=== PATIENT | female | born 1995 | race Caucasian/White ===

== ENCOUNTER 2018-01-07 15:05 | Inpatient (IN) | payer MEDICAID ==
[~2018-01-07] VITALS: Ht 157.5 cm; Wt 86.2 kg
[~2018-01-07 15:05] MED LIST: CEFU250T11 PO; NAP500 PO; ONDA4TAB PO; ONDA4TAB97 PO; PREN-127 PO; TRA50 PO; TRIO80T TOP
[2018-01-07] MEDS ORDERED: OXYTOCIN 30 UNIT/D5LR 500 ML 500 ML IV PRN (15:34)
[2018-01-07] MEDS ORDERED: FAMOTIDINE(*) 20MG/50ML PREMIX 50 ML IVPB PRN (15:34)
[2018-01-07] MEDS ORDERED: DLR(*) 1000 ML BAG 1,000 ML IV PRN (15:34)
[2018-01-07] MEDS ORDERED: fentaNYL CITR 100 MCG/2 ML AMP IVP PRN (15:35)
[2018-01-07] MEDS ORDERED: fentaNYL CITR 100 MCG/2 ML AMP IT PRN (15:35)
[2018-01-07] MEDS ORDERED: EPIDURAL KEYS XX PRN (15:35)
[2018-01-07] MEDS ORDERED: LIDOCAINE 1% LOCAL 300 MG/30ML INJ PRN (15:35)
[2018-01-07] MEDS ORDERED: LIDOCAINE/PF 2% 200MG/10ML AMP 200 MG/10 ML AMPUL EPI PRN (15:35)
[2018-01-07] MEDS ORDERED: METOCLOPRAMIDE 10 MG/2 ML SDV IVP PRN (15:35)
[2018-01-07] MEDS ORDERED: BUPIVACAINE 0.25% MPF INJ EPI PRN (15:35)
[2018-01-07] MEDS ORDERED: FLUSH 10 ML SYR IVP PRN (15:35)
[2018-01-07] MEDS ORDERED: LIDO/EPI 2% MPF 1:200,000 20ML EPI PRN (15:35)
[2018-01-07] MEDS ORDERED: cefOXitin/DEX(*) 2GM/50ML PREM 50 ML IVPB PRN (15:35)
[2018-01-07 16:17] LABS: PLATELET COUNT, AUTOMATED 183 K/uL (150-450)
--- NOTE | 2018-01-07 18:39 | History & Physical ---
History of Present Illness Age of Patient: 22 : 2 Para or TPAL: 0101 EDC per LMP: Jan 15, 2018 Estimated Gestational Age: 38.6 Chief Complaint Uterine contractions. Loss of fluid. History of Present Illness The patient is a 22 year old 2 para 0101 admitted at 38 6/7 weeks estimated gestational age with an estimated date of delivery 01/15/18 . Patient is admitted with complaint of contractions and loss of fluid. No vaginal bleeding. Good movement and occasional contractions. She was evaluated for active labor. She had an uncomplicated course. Her record was reviewed. History Allergies: Coded Allergies: No Known Drug Allergies (Verified , 10/09/12) Med Rec Home Meds Active Scripts Ondansetron Hcl (ZOFRAN) 4 Mg Tablet, 4 MG PO Q6H Y for NAUSEA/VOMITING, #10 Prov:VOLODYMYR ADLER DO 06/24/17 Cefuroxime Axetil (CEFUROXIME) 250 Mg Tablet, 250 MG PO BID for infection, #14 TAB Prov:VOLODYMYR ADLER DO 06/24/17 Reported Medications Vits W-Ca,Fe,Fa(<1MG) ( VITAMINS) 1 Each Tablet, 1 EACH PO DAILY, TAB 06/23/17 Exam General Exam Cardiovascular: Regular Rate and Rhythm Respiratory: Clear to Auscultation Abdomen: Gravid - Non-Tender Extremities: No Edema Cervical Dialation: 4 Cervical Effacement (%): 90 Uterine Contractions(Q min): 3 Uterine Contraction Strength: Moderate Fetus Heart Tones: 130 Heart Tone Variabilty: Moderate FHT Category: I Medical Decision Making Data Points Result Diagram: 01/07/18 8929 Assessment and Plan Problems: (1) Active labor at term Assessment & Plan: SROM, started on pitocin for augmentation anticipated vaginal delivery (2) Chronic anemia Assessment & Plan: typed and screened will follow to see if symptoms develop Copies to: IMANI COLÓN MD, JOHN MD Jan 07, 2018 18:39
[2018-01-07] MEDS: LR(*) 1000 ML BAG 1,000 ML IV PRN ×2 (19:17→20:23)
[2018-01-07] MEDS: FENTANYL/ROPIVACAINE 100 ML BAG EPI PRN ×2 (19:19→22:00)
--- NOTE | 2018-01-07 19:44 | Labor Progress Note ---
Labor Subjective Progress Notes Subjective comfortable with epidural Labor Pain: Comfortable Labor Objective Cervical Dialation: 5 Cervical Effacement (%): 90 Cervical Consistency: Soft Cervical Position: Anterior Station: 0 Uterine Contractions(Q min): 3 Uterine Contraction Strength: Moderate Fetus Heart Tones: 140 Heart Tone Variabilty: Moderate FHT Category: I Other Result Diagram: 01/07/18 1557 Assessment and Plan Problems: (1) Active labor at term Assessment & Plan: epidural in anticipate vaginal delivery (2) Chronic anemia IMANI COLÓN MD Jan 07, 2018 19:44
--- NOTE | 2018-01-07 20:01 | Anesthesia OB Pre-Anes Eval ---
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 Hx Anesthesia Reactions: No Hx Family Anesthesia Reaction: No Home Meds Active Scripts Ondansetron Hcl (ZOFRAN) 4 Mg Tablet, 4 MG PO Q6H Y for NAUSEA/VOMITING, #10 Prov:VOLODYMYR ADLER DO 06/24/17 Cefuroxime Axetil (CEFUROXIME) 250 Mg Tablet, 250 MG PO BID for infection, #14 TAB Prov:VOLODYMYR ADLER DO 06/24/17 Reported Medications Vits W-Ca,Fe,Fa(<1MG) ( VITAMINS) 1 Each Tablet, 1 EACH PO DAILY, TAB 06/23/17 Allergies: Coded Allergies: No Known Drug Allergies (Verified , 10/09/12) Anesthesia OB ROS Eyes ROS: other (no contacts) Airway Class: l GI ROS: clear liquids Last Solids Date: Jan 07, 2018 Last Solids Time: 09:00 ASA Classification: 2, E Assessment and Plan Anesthesia Plan: ALIREZA MILLER CRNA Jan 07, 2018 20:01
[2018-01-07 20:05] VITALS: BP 148/78; Ht 157.5 cm; Wt 86.2 kg
--- NOTE | 2018-01-07 20:06 | Procedure Note ---
Anesthetic Placement Note Anesthesia Plan: LEB Permit for Anesthesia Signed: Yes Anesthesia Technique: Patient Sitting Anesthesia Prep: Betadine Interspace: L 2-3 Local Anesthetic: 1% Lidocaine Amount Local - cc's: 3 Anesthesia Needle: 17g Adelita/Williams Loss of Resistance: Air Depth of PRAVEENA (cm): 4.5 Catheter Insertion (cm): 5 Catheter Type: Parra - Spring Wound Epidural Dressing: Tegaderm Anesthesia Tray: Lot Number ([id number]), Expiration Date (2018-08-05), Reference Number ([id number]) Comment: no problems placing epidural. Anesthesia Medications: Epidural Test Dose: 1.5 Lido/Epi (1:200,000), Dose - mL (5), Time (19:29), Negative Epidural Loading Dose: 0.2% Ropivicaine, With Fentanyl 2mcg/ml, Dose - ml (9), Time (19:34) Epidural Infusion: 0.2% Ropivicaine, With Fentanyl 2mcg/ml, Start Time: (19:45) Epidural Pump Setting: Bolus Dose - mL (5), Lockout - Minutes (10), Maintenance Rate - mL/hr (9), Maximum per Hour - mL (19) Complications: None ALIREZA VALLECILLO CRNA Jan 07, 2018 20:05
--- NOTE | 2018-01-07 20:07 | Anesthesia Progress Note ---
Progress/Maintenance Anesthesia Note Date: Jan 07, 2018 Anesthesia Note Time: 20:05 Pain Intensity: 3 Pump: On Pump Rate (ML/HR): 9 Sensory Level: t-8 Motor Level: Bending Knees-Bilateral Position: Right, Tilt ALIREZA VALLECILLO CRNA Jan 07, 2018 20:07
--- NOTE | 2018-01-07 22:54 | Anesthesia Progress Note ---
Progress/Maintenance Anesthesia Note Date: Jan 07, 2018 Anesthesia Note Time: 22:40 Pain Intensity: 3 Pump: On Pump Rate (ML/HR): 9 Motor Level: Bending Knees-Bilateral Dilatation: 10 Anesthesia Treatment: donalding ALIREZA VALLECILLO CRNA Jan 07, 2018 22:54
[2018-01-07] MEDS ORDERED: METHYLERGONOVINE MAL 0.2MG/ML ONE (23:10)
[2018-01-07] MEDS ORDERED: MISOPROSTOL 200 MCG TAB ONE (23:15)
[2018-01-07] MEDS ORDERED: INFLUENZA VIRUS VAC 0.5 ML SYR IM ONLY ONE (23:20)
[2018-01-07] MEDS ORDERED: HYDROCORTISONE 2.5% CR 30GM TB PR PRN (23:20)
[2018-01-07] MEDS ORDERED: MISOPROSTOL 200 MCG TAB PR ONE ×2 (23:20)
[2018-01-07] MEDS ORDERED: LANOLIN OINT 7 GM TUBE TP PRN (23:20)
[2018-01-07] MEDS ORDERED: ACETAMINOPHEN 325 MG TAB PO PRN (23:20)
[2018-01-07] MEDS ORDERED: GLYCERIN/WITCH HAZEL LEAF 1 PK TOP PRN (23:20)
[2018-01-07] MEDS ORDERED: BENZOCAINE 20% 60 ML BTL TP PRN (23:20)
[2018-01-07] MEDS ORDERED: MAGNESIUM HYDROXIDE* 30ML UDCP PO PRN (23:20)
[2018-01-07] MEDS ORDERED: DIPHTH/TETANUS/ACEL. PERTUSSIS IM ONE (23:20)
[2018-01-07] MEDS ORDERED: MEASLES,MUMP,RUBELLA VAC 0.5ML SC ONE (23:20)
--- NOTE | 2018-01-07 23:21 | OB Delivery Note ---
Delivery Note Vaginal Delivery Type: Spont. Vaginal Delivery Delivery Date: Jan 07, 2018 Delivery Time: 23:01 Delivery Anesthesia: Epidural Sex: Female Infant Weight (gms): 3395 Apgars: 1 Minute (8), 5 Minute (9) Repair Needed: Laceration, Superficial, Labial Estimated Blood Loss: 300 Delivery Complications: Nuchal Cord Notes: SPONTANEOUS LABOR, SROM, RECEIVED EPIDURAL AUGMENTED WITH PITOCIN, PROGRESSED TO COMPLETE, PUSHED EFFECTIVELY. NUCHAL COR NOTED DELIVERED THROUGH, REPAIR OF SUPERFICIAL LACERATION WITH 3-0 VICRYL. NO COMPLICATIONS, GIVEN CYTOTEC WITH HISTORY OF ANEMIA TO DECREASE BLOOD LOSS Improvement Spec in Attendence: No Copies to: IMANI COLÓN MD, JOHN MD Jan 07, 2018 23:21
[2018-01-07] MEDS ORDERED: IBUP800T37 PO (23:27)
[2018-01-07] MEDS ORDERED: HYDR2TAB4 PO (23:27)
--- NOTE | 2018-01-07 23:28 | OB/GYN Discharge Summary ---
Discharge Summary Reason for Hosp/Final Diag: (1) Active labor at term Status: Resolved (2) Chronic anemia (3) care following vaginal delivery Hospital Course & Plan: Spontaneous labor, vaginal delivery on day 2, Pain controlled, Tolerating diet and activity. Baby bottle feeding. Normal lochia. Lates Vital Signs Vital Signs Date Time Temp Pulse Resp B/P (MAP) Pulse Ox O2 Delivery O2 Flow Rate FiO2 01/07/18 20:05 97.1 80 18 148/78 (101) 100 Room Air Weight (Pounds): 190 Result Diagram: 01/07/18 1557 Condition: Improved Discharge: Home Home Meds Active Scripts Ferrous Sulfate (FERROUS SULFATE) 325 Mg Tablet.dr, 1 TAB PO TID, #90 TAB 0 Refills Prov:IMANI SOUTH MD 01/07/18 Docusate Calcium (DOCUSATE CALCIUM) 240 Mg Capsule, 1 CAP PO BID, #60 CAPSULE 0 Refills Prov:IMANI SOUTH MD 01/07/18 Ibuprofen (IBUPROFEN) 800 Mg Tablet, 1 TAB PO Q8H, #30 TAB 0 Refills Take with food every 8 hours. Prov:IMANI SOUTH MD 01/07/18 Hydromorphone Hcl (HYDROMORPHONE HCL) 2 Mg Tablet, 2-4 MG PO Q4H for PAIN, #20 TAB 0 Refills Prov:IMANI SOUTH MD 01/07/18 Ondansetron Hcl (ZOFRAN) 4 Mg Tablet, 4 MG PO Q6H Y for NAUSEA/VOMITING, #10 Prov:VOLODYMYR ADLER DO 06/24/17 Cefuroxime Axetil (CEFUROXIME) 250 Mg Tablet, 250 MG PO BID for infection, #14 TAB Prov:VOLODYMYR ADLER DO 06/24/17 Reported Medications Vits W-Ca,Fe,Fa(<1MG) ( VITAMINS) 1 Each Tablet, 1 EACH PO DAILY, TAB 06/23/17 Follow up with: Dr. South [phone] Follow up in: 6 wks PP or PO Discharge Diet: As Tolerates Discharge Activity: Pelvic Rest Copies to: IMANI SOUTH MD, JOHN MD Jan 07, 2018 23:28
--- NOTE | 2018-01-07 23:28 | Anesthesia Progress Note ---
Assessment and Plan Anesthesia Plan: LEB Assessment: delivered, pump stopped at 2320 hrs. Catheter to be removed later by OB staff. Anesthesia Stop Day: Jan 07, 2018 Anesthesia Stop Time: 23:25 Epidural Catheter Removal: Removed by: Condition no problems noted. ALIREZA VALLECILLO CRNA Jan 07, 2018 23:28
[2018-01-07] MEDS ORDERED: DOCU240C67 PO (23:29)
[2018-01-07] MEDS ORDERED: FERR-41 PO (23:29)
[2018-01-08] MEDS: IBUPROFEN 800 MG TAB PO SCH ×3 (01:05→16:34)
[2018-01-08 01:30] VITALS: BP 133/84
[2018-01-08 04:30] VITALS: BP 137/77
[2018-01-08] MEDS: HYDROmorphone HCL 2 MG TAB PO PRN ×4 (05:14→20:25)
[2018-01-08] MEDS ORDERED: MISOPROSTOL 200 MCG TAB ONE (06:31)
[2018-01-08 07:20] VITALS: BP 129/75
--- NOTE | 2018-01-08 08:13 | OB/GYN Progress Note ---
OB Subjective Progress Notes Subjective Pain controlled, Tolerating diet and activity. Baby bottle feeding. Normal lochia. GI: POS Flatus, NEG Nausea, NEG Vomiting : Voiding Well OB Objective Physical Exam Vital Signs Date Time Temp Pulse Resp B/P (MAP) Pulse Ox O2 Delivery O2 Flow Rate FiO2 01/08/18 07:20 98.2 79 30 129/75 (93) 97 Room Air Cardiovascular: Regular Rate and Rhythm Respiratory: Clear to Auscultation Abdomen: Fundus Firm Extremities: No Edema Result Diagram: 01/08/18 0544 Assessment and Plan Problems: (1) Active labor at term Status: Resolved (2) Chronic anemia (3) care following vaginal delivery Assessment & Plan: Pain controlled, Tolerating diet and activity. Baby bottle feeding. Normal lochia. IMANI COLÓN MD Jan 08, 2018 08:12
[2018-01-08] MEDS: MULTIVITAMINS (PRENATAL) TAB PO SCH (08:29)
[2018-01-08] MEDS: DOCUSATE CALCIUM 240 MG CAP PO SCH ×2 (08:29→20:25)
[2018-01-08] MEDS: FERROUS SULFATE 325 MG TAB PO SCH ×2 (08:29→16:34)
[2018-01-08 11:30] VITALS: BP 104/56
[2018-01-08 15:50] VITALS: BP 119/62
[2018-01-09] MEDS: IBUPROFEN 800 MG TAB PO SCH ×3 (01:07→17:23)
[2018-01-09] MEDS: HYDROmorphone HCL 2 MG TAB PO PRN (04:20)
[2018-01-09 07:20] VITALS: BP 132/82
--- NOTE | 2018-01-09 07:32 | OB/GYN Progress Note ---
OB Subjective Progress Notes Subjective Doing good this morning. Pain 2/10. Reports lochia appropriate. Tolerating regular diet. Ambulatory but does complain of some dizziness. Voiding with out any difficulty. GI: NEG Nausea, NEG Vomiting, NEG Flatus, NEG Bowel Movement : Voiding Well, Vaginal Bleeding, Scant Pain: Mild Neurological: No Headache, No Other Eyes: No Visual Disturbances OB Objective Physical Exam Vital Signs Date Time Temp Pulse Resp B/P (MAP) Pulse Ox O2 Delivery O2 Flow Rate FiO2 01/08/18 15:50 97.9 77 20 119/62 (81) 01/08/18 11:30 94 Room Air General Appearance: Alert/Awake/No Acute Distress Neurological: No Gross deficits Eyes: Normal Extraocular Movement & Vison, PERRLA ENT: Normal Neck: No Masses Cardiovascular: Normal Rhythm & Peripheral Pulses, Regular Rate and Rhythm Respiratory: No Respiratory Distress, Clear to Auscultation Abdomen: Soft, Non-Tender, Non-Distended, Fundus Firm Extremities: No Edema Result Diagram: 01/08/18 0544 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 Will ambulate today. If still symptomatic will get cbc and consider transfusion. If asymptomatic d/c home. KADE CROWE DO Jan 09, 2018 07:32
[2018-01-09] MEDS: MULTIVITAMINS (PRENATAL) TAB PO SCH (08:56)
[2018-01-09] MEDS: FERROUS SULFATE 325 MG TAB PO SCH ×2 (08:56→17:23)
[2018-01-09] MEDS: DOCUSATE CALCIUM 240 MG CAP PO SCH (08:56)
[2018-01-09 09:57] LABS: PLATELET COUNT, AUTOMATED 190 K/uL (150-450)
[2018-01-09 11:00] VITALS: BP 128/80
[2018-01-09 15:00] VITALS: BP 150/66
[2018-01-09 16:17] VITALS: BP 140/78
== END 2018-01-09 18:50 | disposition home or self-care (01) | DRG 775 ==
LOC: OBSVTOIN 15:05 → OB 15:05
PROVIDERS: ADMIT Obstetrics & Gynecology; ATTEND Obstetrics & Gynecology
PROC: 10E0XZZ Delivery of Products of Conception, External Approach (ICD-10-PCS; principal; 2018-01-07)
PROC: 0HQ9XZZ Repair Perineum Skin, External Approach (ICD-10-PCS; 2018-01-07)
DX: O99.02 Anemia complicating childbirth (principal); O69.81X0 Labor and delivery complicated by cord around neck, without compression, not applicable or unspecified; D64.9 Anemia, unspecified; O70.0 First degree perineal laceration during delivery; Z3A.38 38 weeks gestation of pregnancy; Z37.0 Single live birth
CPT/HCPCS: 36415; 84112; 85025; 85027; 86850; 86900; 86901; J2590; J7120

== ENCOUNTER → 2018-12-07 | Outpatient (CLI) | payer MEDICAID ==
[2018-01-07 20:05] VITALS: BMI 34.8
[~2018-12-07] MED LIST changes: +DOCU240C67 PO; +FERR-41 PO; +HYDR2TAB4 PO; +IBUP800T37 PO
[2018-12-07 17:14] LABS: PLATELET COUNT, AUTOMATED 251 K/uL (150-450)
== END ==
LOC: LAB 15:48
PROVIDERS: ATTEND Obstetrics & Gynecology
DX: Z34.91 Encounter for supervision of normal pregnancy, unspecified, first trimester (principal)
CPT/HCPCS: 36415; 81001; 85025; 86592; 86703; 86762; 86787; 86850; 86900; 86901; 87088; 87340

== ENCOUNTER → 2018-12-13 | Outpatient (CLI) | payer MEDICAID ==
[2018-01-07 20:05] VITALS: BMI 34.8
== END ==
LOC: LAB 08:06
PROVIDERS: ATTEND Student in an Organized Health Care Education/Training Program
DX: Z34.92 Encounter for supervision of normal pregnancy, unspecified, second trimester (principal)
CPT/HCPCS: 87491; 87591

== ENCOUNTER → 2018-12-13 | Outpatient (CLI) | payer MEDICAID ==
[2018-01-07 20:05] VITALS: BMI 34.8
--- NOTE | 2018-12-13 13:50 | RADIOLOGY IMAGING REPORT ---
FACILITY: [facility] PATIENT NAME: Lin Huerta : 1995 MR: [id number] V: [id number] EXAM DATE: ORDERING PHYSICIAN: KADE CROWE TECHNOLOGIST: Location: [facility] Patient: Lin Huerta : 1995 Visit/Account:[id number] Date of Sevice: 12/13/2018 [facility] OB ANATOMICAL SURVEY HISTORY: Anatomic survey COMPARISON: None. TECHNIQUE: Transabdominal imaging was performed for assessment of the fetus and maternal pelvic s tructures. Transvaginal imaging was not performed. FINDINGS: Intrauterine gestations: One. presentation: Variable. heart rate: 1:30 bpm. Amniotic fluid volume: Normal; THEA 16.85 cm; MVP 4.6 cm. Placenta: Posterior. Uterus: Gravid, otherwise grossly unremarkable where visualized. Maternal adnexa/ovaries: Grossly unremarkable, ovaries not visualized. Cervix: Grossly long and closed. Gestational Parameters: BPD: 5.21 cm, 15th percentile HC: 19.58 cm, 8th percentile AC: 17.39 cm, 29th percentile FL: 3.87 cm, 29th percentile Average ultrasound age (AUA): 22 weeks/ one days Estimated age based on LMP: 22 weeks/ five days Estimated weight (EFW): 491 grams +/- 72 grams consistent with the 24th percentile Anatomic Survey: Intracranial structures, 4-chamber heart, stomach, kidneys, urinary bladder, spine, 3-vessel cord and cord insertion are unremarkable. Two upper and two lower extremities visualized. IMPRESSION: Single viable fetus in varied presentation with an estimated gestational age of 22 weeks and one day by measurements. Estimated gestational age by LMP is 22 weeks and five days Estimated weight is 491 g consistent with the 24th percentile Report Dictated By: Cassi Benson MD at 12/13/2018 1:43 PM Report E-Signed By: Cassi Benson MD at 12/13/2018 1:47 PM WSN:DYLAN
== END ==
LOC: RAD 10:56
PROVIDERS: ATTEND Student in an Organized Health Care Education/Training Program
DX: Z02.9 Encounter for administrative examinations, unspecified (principal)

== ENCOUNTER → 2019-01-30 | Outpatient (CLI) | payer MEDICAID ==
[2018-01-07 20:05] VITALS: BMI 34.8
[~2019-01-30] MED LIST changes: +DIPH0.5D12 IM
[2019-01-30 15:24] LABS: PLATELET COUNT, AUTOMATED 270 K/uL (150-450)
== END ==
LOC: LAB 14:06
PROVIDERS: ATTEND Student in an Organized Health Care Education/Training Program
DX: Z34.93 Encounter for supervision of normal pregnancy, unspecified, third trimester (principal)
CPT/HCPCS: 36415; 82950; 85025

== ENCOUNTER 2019-03-06 21:17 | Observation (INO) | payer MEDICAID ==
[~2019-03-06] VITALS: Ht 157.5 cm; Wt 89.4 kg
[~2019-03-06 21:17] MED LIST changes: -DIPH0.5D12 IM; +DIPH0.5S2 IM; +DOCU-416 PO; +FERR159T PO
[2019-03-06 21:35] VITALS: BP 128/75; Ht 157.5 cm; Wt 89.4 kg
[2019-03-06] MEDS ORDERED: ACETAMINOPHEN 500 MG TAB PO PRN (22:00)
[2019-03-06] MEDS ORDERED: ACETA/BUTAL/CAFF 325/50/40 TAB PO PRN (22:05)
[2019-03-06] MEDS: LR(*) 1000 ML BAG 1,000 ML IV PRN ×2 (22:18→23:52)
[2019-03-06 22:26] LABS: PLATELET COUNT, AUTOMATED 210 K/uL (150-450)
--- NOTE | 2019-03-06 22:43 | History & Physical ---
History of Present Illness Age of Patient: 23 : 4 Para or TPAL: 2 EDC per LMP: Apr 13, 2019 Estimated Gestational Age: 34.4 Chief Complaint Pt reports feeling "tightening" of her belly since 9am this morning with an irregular pattern. She called the clinic and they told her to rest, hydrate and to monitor. She did this all day and tonight she started to feel a little abdominal and back pain with contractions every 5 minutes. She reports +FM, no LOF, or VB. She has had a headache most of the day, but no vision changes or RUQ pain. She is concerned because she had her second baby at 36 weeks. She denies vaginal symptoms and urinary symptoms. She has no concerns for STIs. History Patient's Blood Type: A Positive Rubella Status: Non-Immune Group B Strep Screen: Unknown Allergies: Coded Allergies: No Known Drug Allergies (Verified , 10/09/12) Family History: FH: colon cancer FATHER FH: diabetes mellitus MATERNAL FAMILY Med Rec Home Meds Active Scripts Ferrous Sulfate (FERROUS SULFATE) 325 Mg Tablet.dr, 1 TAB PO BID for anemia for 30 Days, #60 TAB 3 Refills Prov:JESSIE EARL [facility] 02/19/19 Docusate Sodium (COLACE) 100 Mg Capsule, 100 MG PO BID for constipation for 30 Days, #60 CAPSULE 1 Refill Prov:JESSIE EARL [facility] 02/19/19 Reported Medications Vits W-Ca,Fe,Fa(<1MG) ( VITAMINS) 1 Each Tablet, 1 EACH PO DAILY, TAB 06/23/17 Review of Systems Constitutional: No Fever Eyes: No Vision Change Cardiovascular: No Chest Pain Respiratory: No Cough Gastrointestinal: No Nausea, No Vomiting, No Diarrhea; Abdominal Pain (with contractions) Musculoskeletal: Pain (back with contractions) Exam General Exam Vital Signs Vital Signs Date Time Temp Pulse Resp B/P (MAP) Pulse Ox O2 Delivery O2 Flow Rate FiO2 03/06/19 21:35 97.5 89 16 128/75 (92) 98 Room Air General Apperance: Alert/Awake/No Acute Distress Neuro: No Gross deficits Respiratory: No Respiratory Distress Abdomen: RUQ Non-Tender, Fundus - Non-Tender : Normal Integumentary: Skin Intact without Lesions or Rash Psychological: Alert & Oriented X3, Appropriate Mood & Affect Cervical Dialation: 1 (by speculum) Uterine Contractions(Q min): 6 Uterine Contraction Strength: Mild UC Resting Tone: Soft Fetus Feeling Movement?: Yes Heart Tones: 135 Heart Tone Variabilty: Moderate (135) FHT Accelerations: Present, 15X15 FHT Decelerations: None FHT Category: I Medical Decision Making Data Points Result Diagram: 03/06/19 8506 Assessment and Plan Problems: (1) uterine contractions in third trimester, antepartum Onset Date: ~ 03/06/2019 Status: Acute Assessment & Plan: YL is a 23 y/o @ 34 4/7 wga by LMP c/w 22-5/7 wk sono with an MARY of 04/13/19 who arrived to labor and delivery at 2130 tonight with complaints of non painful contractions all day Labor state: Contraction pattern is irregular and pt feels some discomfort now with contractions in her abdomen and back, but it is limited. Plan to evaluate labor status and rule out other possible causes of contractions. Admit to triage, start IV and bolus IVF for hydration with CBC and UA. Plan for sterile speculum exam, GBS collection and to monitor for at least 2 hours and reevaluate well-being: Category I FHT with continuous monitoring Maternal well-being: VSS, afebrile and normotensive, membranes presumed intact PNL: GBS unknown, rubella non-immune Pain Management: Pt tolerating c/b: * Hx of delivery with her last baby at 36 weeks * Rubella nonimmune- MMR * Chronic anemia: Just started taking iron and Colace 2 weeks ago * Close interval -UA shows possible UTI: will plan to treat with antibiotics and send UA for culture. -IVF bolus and continuous IVF while here at 125cc/hr -GBS sent -Sterile speculum exam: Cervix 1 and thick -Plan to observe pt for 2 hours and reevaluate contraction pattern and cervix JESSIE EARL CNM March 06, 2019 22:43
[2019-03-06] MEDS ORDERED: CIPROFLOXACIN 500 MG TAB PO ONE (23:15)
[2019-03-07] MEDS ORDERED: NIFEdipine 10 MG CAP PO SCH (01:15)
[2019-03-07] MEDS ORDERED: BETAMETHASONE/ACETATE 6 MG/1ML ONE (01:17)
--- NOTE | 2019-03-07 01:23 | Labor Progress Note ---
Labor Subjective Progress Notes Subjective Pt reports that contractions are getting more painful, but are still irregular. Good FM, no LOF or VB. Feeling Movement?: Yes Labor Pain: Moderate Neurological: No Headache Eyes: No Visual Disturbances Labor Objective Vital Signs Vital Signs Date Time Temp Pulse Resp B/P (MAP) Pulse Ox O2 Delivery O2 Flow Rate FiO2 03/06/19 21:35 97.5 89 16 128/75 (92) 98 Room Air Cervical Dialation: 2 Cervical Effacement (%): 30 Cervical Consistency: Moderate Cervical Position: Posterior Station: -3 Presentation: Vertex Uterine Contractions(Q min): 6 Uterine Contraction Strength: Mild UC Resting Tone: Soft Fetus Heart Tones: 130 Heart Tone Variabilty: Moderate FHT Accelerations: 15X15 FHT Decelerations: None FHT Category: I General Exam General Appearance: Alert/Awake/No Acute Distress ENT: Normal Abdomen: Gravid - Non-Tender, RUQ Non-Tender : Normal, No CVA Tenderness Musculoskeletal: No Weakness/Pain Integumentary: Skin Intact without Lesions or Rash Psychological: Alert & Oriented X3, Appropriate Mood & Affect Other Result Diagram: 03/06/19 2214 Assessment and Plan Problems: (1) uterine contractions in third trimester, antepartum Onset Date: ~ 03/06/2019 Status: Acute Assessment & Plan: YL is a 23 y/o @ 34 4/7 wga by LMP c/w 22-5/7 wk sono with an MARY of 04/13/19 who arrived to labor and delivery at 2130 tonight with complaints of non painful contractions all day Labor state: Difficult to assess if in labor, cervix has changed, but very thick and firm. Contraction pattern varying from every 3-12 minutes a part, but more painful per pt. Consulted with Dr Hay about patient status. Plan to give Procardia 10mg po X1 and betamethasone 12mg IM. Will plan to monitor pt for 2 mo re hours and then recheck cervix for changes. If no change consider Dc to home with strict labor precautions. IV hydration and antibiotics given. Wet prep sent well-being: Category I FHT with continuous monitoring Maternal well-being: VSS, afebrile and normotensive, membranes presumed intact PNL: GBS unknown, rubella non-immune Pain Management: Pt tolerating c/b: * Hx of delivery with her last baby at 36 weeks * Rubella nonimmune- MMR * Chronic anemia: Just started taking iron and Colace 2 weeks ago * Close interval Assess pt in 2 hours or sooner if needed JESSIE EARL CNM March 07, 2019 01:23
[2019-03-07] MEDS ORDERED: NIFEdipine 10 MG CAP PO ONE (01:25)
[2019-03-07] MEDS: LR(*) 1000 ML BAG 1,000 ML IV PRN (02:44)
[2019-03-07] MEDS ORDERED: NIF10 PO (03:48)
[2019-03-07] MEDS ORDERED: CIPR-214 PO (03:48)
--- NOTE | 2019-03-07 04:06 | OB/GYN Discharge Summary ---
Discharge Summary Reason for Hosp/Final Diag: (1) uterine contractions in third trimester, antepartum Onset Date: ~ 03/06/2019 Status: Acute Hospital Course & Plan: BRENNA is a 23 y/o @ 34 4/7 wga by LMP c/w 22-5/7 wk sono with an MARY of 04/13/19 who arrived to labor and delivery at on 03/06/19 @ 2130 tonight with complaints of non painful contractions all day Assessment/Plan: Pt does not appear to be in labor. She has had no cervical change in 2 hours and her contraction pattern has spaced out to 9-12 minutes a part. She has been sleeping and not feeling any pain. Spoke to Dr. Hay with update and we agree that pt can go home with strict labor precautions, Procardia PRN contractions, Continue Cipro for 2 more days for UTI, and encourage increased hydration. She will return to clinic on 03/08/19 for her second dose of betamethasone or sooner if needed. Subjective: Pt feels good about this plan. She has been sleeping and not feeling any pain. She denies LOF and VB. Her headache is also better. She verbalizes her understanding of when to return and will come to clinic Monday am for betamethasone. Objective: 6 hours of observation, UA with leukocyte estrase and sent for Culture, wet prep neg, (No PPROM) Neg pooling, neg valsalva, 2.5 liters of IVF given, procardia 10mg X1, FHT I with reactive and reassuring NST, no cervical change from /-3/mod/pos Lates Vital Signs Vital Signs Date Time Temp Pulse Resp B/P (MAP) Pulse Ox O2 Delivery O2 Flow Rate FiO2 03/06/19 21:35 97.5 89 16 128/75 (92) 98 Room Air Weight (Pounds): 197 Result Diagram: 03/06/198 Condition: Improved Discharge: Home Home Meds Active Scripts Ciprofloxacin 500 Mg Tab (CIPROFLOXACIN 500 MG TAB) 500 Mg Tablet, 500 MG PO Q24H for UTI for 2 Days, #2 TAB 0 Refills Prov:JESSIE EARL CNM 03/07/19 Nifedipine 10 Mg Cap (PROCARDIA 10 MG CAP) 10 Mg Cap, 10 MG PO PRN PRN for CONTRACTIONS MDD 30, #20 CAP Prov:JESSIE EARL CNM 03/07/19 Ferrous Sulfate (FERROUS SULFATE) 325 Mg Tablet.dr, 1 TAB PO BID for anemia for 30 Days, #60 TAB 3 Refills Prov:JESSIE EARL CNM 02/19/19 Docusate Sodium (COLACE) 100 Mg Capsule, 100 MG PO BID for constipation for 30 Days, #60 CAPSULE 1 Refill Prov:JESSIE EARL CNM 02/19/19 Reported Medications Vits W-Ca,Fe,Fa(<1MG) ( VITAMINS) 1 Each Tablet, 1 EACH PO DAILY, TAB 06/23/17 Follow up Referrals: [employer] WORKER - 03/08/19 @ [facility] Follow up in: 1-2 days Discharge Diet: As Tolerates, Resume Prior Admit Diet, Increase Fluid Intake Discharge Activity: As Tolerates JESSIE EARL CNM March 07, 2019 04:06
[2019-03-07] MEDS: NIFEdipine 10 MG CAP PO SCH (04:20)
[2019-03-07] MEDS ORDERED: BETAMETHASONE/ACETATE 6 MG/1ML IM ONLY SCH (09:00)
[2019-03-08] MEDS ORDERED: BET6I IM ONLY (11:25)
== END 2019-03-07 03:50 | disposition home or self-care (01) ==
LOC: OB 21:17
PROVIDERS: ADMIT Obstetrics & Gynecology; ATTEND Obstetrics & Gynecology
DX: O47.03 False labor before 37 completed weeks of gestation, third trimester (principal); Z3A.34 34 weeks gestation of pregnancy; R10.9 Unspecified abdominal pain
CPT/HCPCS: 81001; 85025; 87081; 87088; 87210; G0378; G0379; J0702; J7120

== ENCOUNTER → 2019-03-08 | Outpatient (CLI) | payer MEDICAID ==
[2019-03-06 21:35] VITALS: BMI 36.0
[~2019-03-08] MED LIST changes: +BET6I IM ONLY; +CIPR-214 PO; +NIF10 PO
== END ==
LOC: LAB 08:33
PROVIDERS: ATTEND Obstetrics & Gynecology
DX: O99.113 Other diseases of the blood and blood-forming organs and certain disorders involving the immune mechanism complicating pregnancy, third trimester (principal); D64.9 Anemia, unspecified
CPT/HCPCS: 36415; 82607; 82728; 82746; 83550

== ENCOUNTER 2019-03-22 19:31 | Outpatient (CLI) | payer MEDICAID ==
[~2019-03-22] VITALS: Ht 160 cm; Wt 86.2 kg
[2019-03-22 19:40] VITALS: BP 128/70; Ht 160 cm; Wt 86.2 kg
== END 2019-03-22 22:03 | disposition home or self-care (01) ==
LOC: L&D 19:31 → OB 19:31 → UNDOADMOB 19:31 → OB 19:31 → UNDODISOB 22:03 → L&D 22:03 → EDSTATUS 03-26 07:25
PROVIDERS: ATTEND Obstetrics & Gynecology
DX: O36.8130 Decreased fetal movements, third trimester, not applicable or unspecified (principal); Z3A.37 37 weeks gestation of pregnancy
CPT/HCPCS: 59025; G0463; 99213; G0378; G0379

== ENCOUNTER 2019-04-03 10:00 | Outpatient (RCR) | payer MEDICAID ==
[2019-03-06 21:35] VITALS: Wt 90.2 kg
[2019-03-15 16:23] VITALS: BP 126/86
[2019-03-15 16:55] LABS: PLATELET COUNT, AUTOMATED 302 K/uL (150-450)
--- NOTE | 2019-03-16 15:47 | ONCOLOGY CONSULTATION ---
EVENT DATE: March 15, 2019 REFERRING PHYSICIAN Precious Hay DO REASON FOR CONSULTATION Evaluation and management of iron deficiency anemia for intravenous iron supplementation. HEMATOLOGY HISTORY Patient is a 23-year-old female, [place]ankan, who is currently , in her 36th week of gestation. As per patient, she was diagnosed with iron deficiency anemia when she was a child, and she was taking iron intermittently. Patient has been on iron supplement with ferrous sulfate three tablets daily since the second half of her , and her blood work on the March showed white count 7.4, platelets 210,000, hemoglobin 8.5, hematocrit 28.5, and MCV was 61.9. She was checked for TIBC. It was high at 575, and the ferritin level was low at 4. Patient was referred by her roofing technician for evaluation for intravenous iron supplementation prior to her delivery. PAST MEDICAL HISTORY 1. Chronic iron deficiency anemia. 2. Stress-related atrial fibrillation. 3. A hole in her heart. PAST SURGICAL HISTORY 1. Right arthroscopic surgery. 2. [place] tooth extraction. FAMILY HISTORY Maternal grandmother had colon cancer, and maternal great-grandmother had breast cancer. SOCIAL HISTORY Patient is single with two children, and she is currently for her third one at 36 weeks of gestation. 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 Denies any abuse of tobacco, alcohol, or illicit drugs. CURRENT MEDICATIONS 1. Ferrous sulfate 325 mg three times daily. 2. Colace 100 mg twice daily. 3. vitamin one tablet daily. ALLERGIES No known drug allergies. REVIEW OF SYSTEMS CONSTITUTIONAL: No appetite or weight change. No fever, chills, or sweating. No recent infection. HEENT: Ears: No tinnitus or hearing problem. Nose: No nasal discharge or epistaxis. Throat: No sore throat or mouth ulcers. Eyes: No diplopia or visual changes. RESPIRATORY: No shortness of breath. No cough, expectoration, or hemoptysis. CARDIOVASCULAR: No chest pain, orthopnea, or paroxysmal nocturnal dyspnea (PND). No edema. No palpitations. GASTROINTESTINAL: No nausea or vomiting. No diarrhea. She has constipation. She is currently on stool softeners. No change in bowel movements. No heartburn or swallowing difficulties. No abdominal pain. No jaundice. No hematemesis, melena, or rectal bleeding. GENITOURINARY: No hematuria or dysuria. MUSCULOSKELETAL: No pain in the muscles, joints, or bones. NEUROLOGIC: She has occasional positional tingling and numbness in her hands. She has occasional headache. No convulsions. HEMATOLOGIC/LYMPHATIC: No bleeding or easy bruising. She is weak, tired, and fatigued. No enlarged lymph nodes. SKIN: No skin rash or lumps. PSYCHIATRIC: No anxiety or depression. PHYSICAL EXAMINATION GENERAL: Looks stable. Well developed, well nourished, and in no acute distress. VITAL SIGNS: Blood pressure 128/75, pulse 94 per minute, respirations 16 per minute, temperature 98.5, pulse ox 93% on room air. HEENT: Head: Atraumatic. No sinus tenderness to palpation. Eyes: No icterus or conjunctivitis. Mouth and Throat: No oral thrush or mucositis. NECK: Supple. No cervical or supraclavicular lymphadenopathy. LUNGS: Clear to auscultation and percussion bilaterally. HEART: Regular rate and rhythm. No gallops, murmurs, clicks, or rubs. ABDOMEN: Abdomen is distended because of her . No tenderness. No hepatosplenomegaly. No masses. EXTREMITIES: No cyanosis, clubbing, or edema. LYMPHATICS: No peripheral lymphadenopathy. NEUROLOGIC: Conscious, alert, and oriented times three. No focal motor or sensory deficits. PSYCHIATRIC: Mood and affect appear normal. SKIN: No skin rash, bruise, or purpuric eruption. ASSESSMENT Iron deficiency anemia with no response to oral iron supplement. I am not sure if the patient has malabsorption of iron, like celiac disease, but I am planning to do a full workup for her iron, so I am planning to do a CBC, reticulocyte count, iron studies with ferritin, and soluble transferrin receptor assay. If the patient has iron deficiency, then I am planning to treat her with Injectafer 750 mg intravenous infusion weekly for two weeks, which will supplement her with all the iron she will need. I will see her in a month after the infusions to check her hemoglobin and iron studies again to see if the patient is responding well to that. I explained that to the patient. She is agreeable with the plan of management. I will consider checking the antibodies for celiac disease if she really proves to have iron deficiency while she is taking iron for over two months now. PLAN 1. CBC and retic count. 2. Iron studies with ferritin. 3. Soluble transferrin receptor assay. 4. Consider infusion with Injectafer 750 mg intravenously weekly for two weeks. 5. Patient to return in one week for further evaluation and management. 6. Patient to contact us for any new concerns or complaints. MTDD
[2019-03-22 14:36] VITALS: BP 122/71
[2019-03-22 15:16] VITALS: BP 110/77
[2019-03-22 15:58] VITALS: BP 113/75
--- NOTE | 2019-03-22 23:22 | ONCOLOGY FOLLOW UP NOTE ---
EVENT DATE: March 22, 2019 DIAGNOSIS Iron deficiency anemia with . CHIEF COMPLAINT Patient is here today to decide about intravenous iron supplementation for her iron deficiency. HEMATOLOGY HISTORY Patient is a 23-year-old female, [place], who is currently , in her 36th week of gestation. As per patient, she was diagnosed with iron deficiency anemia when she was a child, and she was taking iron intermittently. Patient has been on iron supplement with ferrous sulfate three tablets daily since the second half of her , and her blood work on the March showed white count 7.4, platelets 210,000, hemoglobin 8.5, hematocrit 28.5, and MCV was 61.9. She was checked for TIBC. It was high at 575, and the ferritin level was low at 4. Patient was referred by her respiratory support technician for evaluation for intravenous iron supplementation prior to her delivery. Serum iron was 43, TIBC was 615, iron saturation 7%, ferritin 5, and soluble transferrin receptor assay was high at 8.5. B12 was 310, and folate was 12.3. CBC showed white count 9.1, hemoglobin 9.6, hematocrit 31.2, platelets 302,000. HISTORY OF PRESENT ILLNESS Patient is here today for evaluation for intravenous iron supplementation for her iron deficiency anemia with . Her iron studies and CBC confirmed the significant iron deficiency anemia. Patient is complaining of shortness of breath and heartburn from her big distended abdomen from her . She is also weak, tired, and fatigued. PAST MEDICAL HISTORY 1. Chronic iron deficiency anemia. 2. Stress-related atrial fibrillation. 3. A hole in her heart. PAST SURGICAL HISTORY 1. Right arthroscopic surgery. 2. [place] tooth extraction. SOCIAL HISTORY Patient is single with two children, and she is currently for her third one at 36 weeks of gestation. 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 Denies any abuse of tobacco, alcohol, or illicit drugs. FAMILY HISTORY Maternal grandmother had colon cancer, and maternal great-grandmother had breast cancer. CURRENT MEDICATIONS 1. Ferrous sulfate 325 mg three times daily. 2. Colace 100 mg twice daily. 3. vitamin one tablet daily. ALLERGIES No known drug allergies. REVIEW OF SYSTEMS CONSTITUTIONAL: No appetite or weight change. No fever, chills, or sweating. No recent infection. HEENT: Ears: No tinnitus or hearing problem. Nose: No nasal discharge or epistaxis. Throat: No sore throat or mouth ulcers. Eyes: No diplopia or visual changes. RESPIRATORY: She has shortness of breath. No cough, expectoration, or hemoptysis. CARDIOVASCULAR: No chest pain, orthopnea, or paroxysmal nocturnal dyspnea (PND). No edema. No palpitations. GASTROINTESTINAL: She has heartburn. No nausea or vomiting. No diarrhea or constipation. No change in bowel movements. No swallowing difficulties. No abdominal pain. No jaundice. No hematemesis, melena, or rectal bleeding. GENITOURINARY: No hematuria or dysuria. MUSCULOSKELETAL: No pain in the muscles, joints, or bones. NEUROLOGIC: No tingling or numbness in the hands or feet. No headaches or convulsions. HEMATOLOGIC/LYMPHATIC: No bleeding or easy bruising. She has weakness, tiredness, and fatigue. No enlarged lymph nodes. SKIN: No skin rash or lumps. PSYCHIATRIC: No anxiety or depression. PHYSICAL EXAMINATION GENERAL: Looks stable. Well developed, well nourished, and in no acute distress. VITAL SIGNS: Blood pressure 122/71, pulse 92 per minute, respirations 16 per minute, temperature 98.2, pulse ox 95% on room air. HEENT: Head: Atraumatic. No sinus tenderness to palpation. Eyes: No icterus or conjunctivitis. Mouth and Throat: No oral thrush or mucositis. NECK: Supple. No cervical or supraclavicular lymphadenopathy. LUNGS: Clear to auscultation and percussion bilaterally. HEART: Regular rate and rhythm. No gallops, murmurs, clicks, or rubs. ABDOMEN: Distended because of her . Soft and lax. No tenderness. No hepatosplenomegaly. No masses. EXTREMITIES: No cyanosis, clubbing, or edema. LYMPHATICS: No peripheral lymphadenopathy. NEUROLOGIC: Conscious, alert, and oriented times three. No focal motor or sensory deficits. PSYCHIATRIC: Mood and affect appear normal. SKIN: No skin rash, bruise, or purpuric eruption. DIAGNOSTIC DATA CBC showed white count 9.1, hemoglobin 9.6, hematocrit 31.2, platelets 302,000. Serum iron was 43, TIBC 615, iron saturation 7%, ferritin 5, soluble transferrin receptor assay 8.5, which is high. B12 was 310 and folate 12.3. ASSESSMENT Iron deficiency anemia with her with no response to oral iron supplement. I am planning to treat her with intravenous iron supplementation with Injectafer 750 mg intravenously weekly for two weeks. I am planning to check her CBC every week and her iron studies with ferritin in two weeks, and I will see her in two months with CBC, iron studies with ferritin, and soluble transferrin receptor assay at that time. PLAN 1. Injectafer 750 mg intravenously weekly for two weeks. 2. CBC to be checked weekly. 3. Iron studies with ferritin to be checked in two weeks. 4. Patient to return in two months with CBC, iron studies with ferritin, and soluble transferrin receptor assay. 5. Patient to contact us for any new concerns or complaints. MTDD
[2019-03-29 09:07] VITALS: BP 123/69
[2019-03-29 09:35] LABS: PLATELET COUNT, AUTOMATED 211 K/uL (150-450)
[2019-03-29 09:56] VITALS: BP 118/65
[~2019-04-03 10:00] MED LIST changes: +DEXTROSE 5%(*) 100 ML BAG 100 ML IVPB PRN; +FERRIC CARBOXY 750 MG SDV 750 MG in NS(*) 0.9% 250 ML BAG 250 ML IVPB ONE; +LIDOCAINE/SOD BICARB 8.4% SYR ID PRN; +NS(*) 0.9% 100 ML BAG 100 ML IVPB PRN
[2019-04-03 10:10] VITALS: BP 124/74
[2019-04-03 10:17] LABS: PLATELET COUNT, AUTOMATED 220 K/uL (150-450)
[2019-04-04] MEDS ORDERED: LOR5/325 PO (23:19)
[2019-04-04] MEDS ORDERED: IBUP800T37 PO (23:19)
[2019-04-17] MEDS ORDERED: ESCI20TA38 PO ×2 (11:01→11:19)
[2019-04-17] MEDS ORDERED: FERR-41 PO (11:19)
[2019-04-17] MEDS ORDERED: DOCU-416 PO (11:19)
== END 2019-05-22 15:37 | disposition home or self-care (01) ==
LOC: SPU 10:00
PROVIDERS: ATTEND Internal Medicine Hematology
DX: O99.013 Anemia complicating pregnancy, third trimester (principal); Z3A.36 36 weeks gestation of pregnancy; R53.1 Weakness; R53.83 Other fatigue
CPT/HCPCS: 36415; 82728; 83540; 83550; 84238; 85025; 85045; 96365; 99202; J1439; J7050; 99212

== ENCOUNTER 2019-04-04 07:30 | Inpatient (IN) | payer MEDICAID ==
[~2019-04-04] VITALS: Ht 157.5 cm; Wt 93.9 kg
[~2019-04-04 07:30] MED LIST changes: -DEXTROSE 5%(*) 100 ML BAG 100 ML IVPB PRN; -FERRIC CARBOXY 750 MG SDV 750 MG in NS(*) 0.9% 250 ML BAG 250 ML IVPB ONE; -LIDOCAINE/SOD BICARB 8.4% SYR ID PRN; -NS(*) 0.9% 100 ML BAG 100 ML IVPB PRN
[2019-04-04 08:00] VITALS: BP 122/75; Ht 157.5 cm; Wt 93.9 kg
[2019-04-04] MEDS ORDERED: OXYTOCIN 30 UNIT/NS 500 ML 500 ML IV PRN (08:17)
[2019-04-04] MEDS ORDERED: FAMOTIDINE(*) 20MG/50ML PREMIX 50 ML IVPB PRN (08:17)
[2019-04-04] MEDS ORDERED: fentaNYL CITR 100 MCG/2 ML AMP IVP PRN (08:20)
[2019-04-04] MEDS ORDERED: BUPIVACAINE 0.5% INJ 30ML VIAL EPI PRN (08:20)
[2019-04-04] MEDS ORDERED: BUPIVACAINE 0.25% MPF INJ EPI PRN (08:20)
[2019-04-04] MEDS ORDERED: LIDO/EPI 2% MPF 1:200,000 20ML EPI PRN (08:20)
[2019-04-04] MEDS ORDERED: LIDOCAINE 1% LOCAL 300 MG/30ML INJ PRN (08:20)
[2019-04-04] MEDS ORDERED: FENTANYL/ROPIVACAINE 100 ML BAG EPI PRN (08:20)
[2019-04-04] MEDS ORDERED: METOCLOPRAMIDE 10 MG/2 ML SDV IVP PRN (08:20)
[2019-04-04] MEDS ORDERED: fentaNYL CITR 100 MCG/2 ML AMP IT PRN (08:20)
[2019-04-04] MEDS ORDERED: FLUSH 10 ML SYR IVP PRN (08:20)
[2019-04-04] MEDS ORDERED: LIDOCAINE/PF 2% 200MG/10ML AMP 200 MG/10 ML AMPUL EPI PRN (08:20)
[2019-04-04] MEDS ORDERED: LIDOCAINE/SOD BICARB 8.4% SYR SC PRN (08:20)
[2019-04-04] MEDS ORDERED: BUPIVACAINE 0.25% MPF INJ ONE (08:32)
[2019-04-04 08:38] LABS: PLATELET COUNT, AUTOMATED 192 K/uL (150-450)
--- NOTE | 2019-04-04 08:43 | History & Physical ---
History of Present Illness Age of Patient: 23 : 3 Para or TPAL: 2 Chief Complaint Pt reports contractions began at 0530 this am and are now 5 minutes apart. Reports good FM, no LOF , but has had some bloody mucus discharge when toileting, She denies FONTANEZ, vision changes, and RUQ/epigastric pain. She is accompanied by her father who appears to be very supportive. History Patient's Blood Type: A Positive Rubella Status: Non-Immune Group B Strep Screen: Negative Allergies: Coded Allergies: No Known Drug Allergies (Verified , 10/09/12) Social History: Denies tobacco, ETOH, and illicit drugs including marijuana. Family History: FH: colon cancer FATHER FH: diabetes mellitus MATERNAL FAMILY Med Rec Home Meds Active Scripts Ferrous Sulfate (FERROUS SULFATE) 325 Mg Tablet.dr, 1 TAB PO BID for anemia for 30 Days, #60 TAB 3 Refills Prov:JESSIE EARL [facility] 02/19/19 Docusate Sodium (COLACE) 100 Mg Capsule, 100 MG PO BID for constipation for 30 Days, #60 CAPSULE 1 Refill Prov:JESSIE EARL [facility] 02/19/19 Reported Medications Vits W-Ca,Fe,Fa(<1MG) ( VITAMINS) 1 Each Tablet, 1 EACH PO DAILY, TAB 06/23/17 Review of Systems Constitutional: No Fever Eyes: No Photophobia Cardiovascular: No Chest Pain Respiratory: No Shortness of Breath, No Cough Gastrointestinal: No Nausea, No Vomiting, No Diarrhea; Abdominal Pain (abominal pain related to contractions) Genitourinary: No Dysuria Psychiatric: No Depression, No Anxiety Exam General Exam General Apperance: Alert/Awake/No Acute Distress Neuro: No Gross deficits Eyes: Normal Extraocular Movement & Vison, PERRLA ENT: Normal Cardiovascular: Regular Rate and Rhythm Respiratory: No Respiratory Distress, Clear to Auscultation Abdomen: Soft, Non-Tender, Non-Distended, Gravid - Non-Tender, RUQ Non-Tender : Normal Musculoskeletal: No Weakness/Pain Extremities: No Cyanosis,Clubbing or Edema Integumentary: Skin Intact without Lesions or Rash Psychological: Alert & Oriented X3, Appropriate Mood & Affect Vaginal Discharge/Fluid?: Bloody Show Cervical Dialation: 7 Cervical Effacement (%): 70 Cervical Consistency: Soft Cervical Position: Mid Station: 0 Presentation: Vertex Uterine Contractions(Q min): 4 Uterine Contraction Strength: Moderate UC Resting Tone: Soft Fetus Feeling Movement?: Yes Estimated Weight(grams): 3500 Heart Tones: 140 Heart Tone Variabilty: Moderate FHT Accelerations: Present, 15X15 FHT Decelerations: None FHT Category: I Medical Decision Making Data Points Result Diagram: 04/04/19 0828 Assessment and Plan Hospital Day: 1 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 at 38w5d wga by LMP c/w 29-/7 wk sono with an MARY of 04/13/19 who presents to L&D with regular painful contractions Labor state: Active labor. Admit to L&D, start IV with CBC and T&S. Pt is requesting an epidural now and STOCK REPLENISHER is aware. Once epidural in place encourage extreme side lying with peanut ball in place to facilitate descent and maximum pelvic outlet opening. well-being: Category I FHT: Continuous monitoring for epidural. Plan to recheck progress in 2-3 hours and if no change discuss AROM vs Pitocin augmentation. Maternal well-being: VSS, normotensive and afebrile, membranes presumed intact PNL: GBS Neg, Type/Rh A+, rubella immune Pain Management: Requesting and epidural now Feed: Bottle PPBCM: unsure c/b: * Chronic iron deficiency Anemia: was evaluated by Heme/Onc and she received 2 iron transfusions in the last few weeks. She also takes iron supplements. She did need a blood transfusion with her first child * History of a at 36 weeks without complications * contractions at 34 weeks and was started on Procardia PRN: to DC at 37 weeks * Rubella nonimmune: will need MMR Anticipate labor progression, re-evaluate in 2-3 hours or prn JESSIE EARL CNM April 04, 2019 08:43
[2019-04-04] MEDS: LR(*) 1000 ML BAG 1,000 ML IV SCH ×2 (09:45→10:59)
--- NOTE | 2019-04-04 10:43 | Labor Progress Note ---
Labor Subjective Progress Notes Subjective Pt is feeling completely comfortable now with the epidural. Chris her partner is at the bedside as well as her sister. Vaginal Discharge/Fluid: Bloody Show, Clear Fluid, Small Amount Labor Pain: Comfortable Neurological: No Headache Eyes: No Visual Disturbances Labor Objective Vaginal Discharge/Fluid?: Bloody Show, Clear Fluid, Small Amount Cervical Dialation: 7 Cervical Effacement (%): 70 Cervical Consistency: Soft Cervical Position: Mid Station: 0 Presentation: Vertex Uterine Contractions(Q min): 5 Uterine Contraction Strength: Mild UC Resting Tone: Soft Fetus Estimated Weight(grams): 3500 Heart Tones: 135 Heart Tone Variabilty: Moderate FHT Accelerations: Present, 15X15 FHT Decelerations: None FHT Category: I General Exam General Appearance: Alert/Awake/No Acute Distress ENT: Normal Neck: No Masses Cardiovascular: Normal Rhythm & Peripheral Pulses Abdomen: Soft, Non-Tender, Non-Distended, Gravid - Non-Tender, RUQ Non-Tender : Normal Musculoskeletal: No Weakness/Pain Extremities: No Cyanosis,Clubbing or Edema Integumentary: Skin Intact without Lesions or Rash Psychological: Alert & Oriented X3, Appropriate Mood & Affect Other Result Diagram: 04/04/19 0828 Assessment and Plan Problems: (1) Uterine contractions Onset Date: ~ 04/04/2019 Status: Acute Assessment & Plan: BRENNA is a 23 y.o. at 38w5d wga by LMP c/w 29-4/7 wk sono with an MARY of 04/13/19 who presents to L&D with regular painful contractions Labor state: Active labor, but no cervical change since admission.. Discussed with the pt the B/R/A to AROM vs pitocin. She desires AROM first. AROM for small amount of slightly bloody clear fluid. Encourage side to side and peanut ball. Will recheck in 2 hours and if not change consider Pitocin augmentation well-being: Category I FHT: Continuous monitoring for epidural. Maternal well-being: VSS, normotensive and afebrile, AROM at 1007 PNL: GBS Neg, Type/Rh A+, rubella immune Pain Management: Requesting and epidural now Feed: Bottle PPBCM: unsure c/b: * Chronic iron deficiency Anemia: was evaluated by Heme/Onc and she received 2 iron transfusions in the last few weeks. She also takes iron supplements. She did need a blood transfusion with her first child * History of a at 36 weeks without complications * contractions at 34 weeks and was started on Procardia PRN: to DC at 37 weeks * Rubella nonimmune: will need MMR Anticipate labor progression, re-evaluate in 2-3 hours or prn JESSIE EARL CNM April 04, 2019 10:43
--- NOTE | 2019-04-04 11:09 | Anesthesia OB Pre-Anes Eval ---
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) Heart Tones: 138 Result Diagram: 04/04/19 0828 Height (Inches): 62.00 Weight (Pounds): 207 BMI (kg/m2): 38 (BMI 31 pre-) Past Medical History Medical History: other (anemia) Surgical History: other (knee scope) Previous Anesthesia: epidural (epidurals for 2 prior deliveries without problem or sequeli) Hx Anesthesia Reactions: No Hx Family Anesthesia Reaction: No Home Meds Active Scripts Ferrous Sulfate (FERROUS SULFATE) 325 Mg Tablet.dr, 1 TAB PO BID for anemia for 30 Days, #60 TAB 3 Refills Prov:JESSIE EARL [facility] 02/19/19 Docusate Sodium (COLACE) 100 Mg Capsule, 100 MG PO BID for constipation for 30 Days, #60 CAPSULE 1 Refill Prov:JESSIE EARL [facility] 02/19/19 Reported Medications Vits W-Ca,Fe,Fa(<1MG) ( VITAMINS) 1 Each Tablet, 1 EACH PO DAILY, TAB 06/23/17 Allergies: Coded Allergies: No Known Drug Allergies (Verified , 10/09/12) Anesthesia OB ROS Neurological: No migraines/headaches, No seizures, No neuropathy, No other ENT: Denies Tooth caps, Denies Loose teeth, Denies Chipped teeth, Denies Dentures, Denies Bridges, Denies Retainers, Denies Veneers, Denies Implants, Denies Tongue ring, Denies Other Pulmonary: No asthma, No smoker (pks/day/yrs), No other Airway Class: ll Cardiovascular ROS: No edema, No arrhythmia, No other GI ROS: clear liquids Last Solids Date: April 04, 2019 Last Solids Time: 10:00 ROS: No Herpes, No STD(s), No Liver Disease, No Renal Disease, No Other Endocrine ROS: No diabetes, No gestational diabetes, No thyroid disorder, No other Musculoskeletal ROS: No low back pain, No low back injury, No scoliosis, No other ASA Classification: 3 (BMI 38) Assessment and Plan Anesthesia Plan: CSE Assessment: Stable alert with full motor return, denies FONTANEZ. Assessment Calm female with supportive significant other and family at bedside wishes to procede w epidural. Counseled for risks, options and questions answered. Anesthesia Stop Day: April 04, 2019 Anesthesia Stop Time: 12:12 Epidural Catheter Removal: Yes, Removed by: (Analia HAMILTON) Removal Date: April 04, 2019 Removal Time: 13:51 Condition Blue tip intact. Two stick sites L4-5, L3-4 are without redness swelling or drainage. Signs of infection and spinal FONTANEZ reviewed w patient and significant other, and they agree to seek medical attention should any occur. Ambulating and holding baby when seated or in bed. MARIELENA JOHNS CRNA April 04, 2019 11:09
--- NOTE | 2019-04-04 11:19 | Procedure Note ---
Anesthetic Placement Note Anesthesia Plan: CSE Permit for Anesthesia Signed: Yes Anesthesia Technique: Patient Sitting Anesthesia Prep: Chlorhexidine (clear fenestrated drape, sterile procedure, traffic stopped, time out done, FERN CUTTER scrubbed hands, sterile gloves, mask. Hats worn by all in room.) Interspace: L 3-4 Local Anesthetic: 1% Lidocaine, 25 Gauge Needle Amount Local - cc's: 2 Anesthesia Needle: 25g Pencan w/Introducer Anesthesia Attempts: 2 (L4-5 1st attempt, with lack of convincing PRAVEENA at appropriate depth.) Loss of Resistance: Normal Saline Depth of PRAVEENA (cm): 5.8 Epidural Needle Placement: No CSF, No Blood, No Parasthesia Intrathecal Needle: 27 Gauge Pencan Cerebral Spinal Fluid: Yes, Clear Catheter Insertion (cm): 3.4 Catheter Type: Parra - Spring Wound Epidural Dressing: Tegaderm, Tape Anesthesia Tray: Lot Number ([id number]), Expiration Date (2020-07-06), Reference Number ([id number]) Anesthesia Medications: Intrathecal Dose: mcg Fentanyl (18), mg Marcaine MPF (3), Time (0850) Epidural Test Dose: 1.5 Lido/Epi (1:200,000), Dose - mL (3), Negative Epidural Infusion: 0.2% Ropivicaine, With Fentanyl 2mcg/ml, Start Time: (0906) Epidural Pump Setting: Bolus Dose - mL (5), Lockout - Minutes (20), Maintenance Rate - mL/hr (7), Maximum per Hour - mL (22) Complications: None Comment: Pain reduced from 7-8/10 to 0/10 within 3 minutes of intrathecal dose. VSS. Pt alert with + motor to legs. MARIELENA JOHNS CRNA April 04, 2019 11:19
--- NOTE | 2019-04-04 12:32 | OB Delivery Note ---
Delivery Note Vaginal Delivery Type: Spont. Vaginal Delivery Delivery Date: April 04, 2019 Delivery Time: 12:10 Delivery Anesthesia: Epidural Sex: Male Weight (gms): 3005 [place] Apgars: 1 Minute, 5 Minute Notes: BRENNA is a 23 year old at 38 5/7 with OOC on 04/04/19 at 0530. Pt was admitted to the family care unit in active labor. Cervical exam on admission was 7/70/-1/soft/mid. She had AROM on 04/04/19 at 1007, for small c lear fluid. Pt was GBS neg. FHR was CAT I primarily throughout first stage. Pt utilized continuous lumbar epidural primarily for pain management. Pt was completely dilated on 04/04/19 at 1200 and pt began pushing at 1205. At 1210 pt had a NSVB of live male infant weighing 6lbs 10oz. The head delivered spontaneously in the OA position and restituted [place]INA with no nuchal cord. The anterior shoulder was delivered a traumatically and the posterior shoulder followed. Body delivered easily. Face was wiped with nose and bulb suction and then placed on the maternal abdomen. The infant was dried and stimulated and noted to have a spontaneous cry and spontaneous movement of all 4 extremities. Cord was clamped X 2 by CNM after pulsations ceased and cut by patient's partner. Mother was in SF position. At 1215 the placenta and membranes delivered spontaneous and intact with a 3 vessel cord after gentle downward traction and maternal push. 30 units of Pitocin was placed in 500cc IV to firm the uterus and started immediately after placenta delivery. Upon inspection of the perineum it was found to be intact. No repair necessary. EBL 350 with fundus firm with minimal bleeding. Mom and baby were left in stable condition. Plans for bottle feeding. "I personally examined the patient and there are no unintended foreign objects in the vagina, and all sponge and lap counts were correct" Alanis Pham CNM was present throughout the entire delivery and Dr. Casillas was my OB backup. ALANIS PHAM CNM April 04, 2019 12:32
[2019-04-04] MEDS ORDERED: MAGNESIUM HYDROXIDE* 30ML UDCP PO PRN (12:35)
[2019-04-04] MEDS ORDERED: GLYCERIN/WITCH HAZEL LEAF 1 PK TP PRN (12:35)
[2019-04-04] MEDS ORDERED: BENZOCAINE 20% 60 ML BTL TP PRN (12:35)
[2019-04-04] MEDS ORDERED: HYDROCORTISONE 2.5% CR 30GM TB PR PRN (12:35)
[2019-04-04] MEDS ORDERED: LANOLIN OINT 7 GM TUBE TP PRN (12:35)
[2019-04-04] MEDS: FERROUS SULFATE 325 MG TAB PO SCH ×2 (13:00→20:36)
[2019-04-04 15:36] VITALS: BP 115/58
[2019-04-04] MEDS: IBUPROFEN 800 MG TAB PO SCH ×2 (16:56→20:36)
[2019-04-04] MEDS: APAP/HYDROCODONE 325/5 TAB PO PRN ×3 (18:18→23:04)
[2019-04-04 19:30] VITALS: BP 127/63
[2019-04-04] MEDS: DOCUSATE CALCIUM 240 MG CAP PO SCH ×2 (20:27→20:36)
[2019-04-04 23:05] VITALS: BP 130/60
[2019-04-04] MEDS ORDERED: IBUP800T37 PO (23:19)
[2019-04-04] MEDS ORDERED: LOR5/325 PO (23:19)
[2019-04-05 03:13] VITALS: BP 112/57
[2019-04-05] MEDS: IBUPROFEN 800 MG TAB PO SCH ×2 (05:00→13:13)
[2019-04-05 07:25] VITALS: BP 115/70
--- NOTE | 2019-04-05 07:40 | OB/GYN Progress Note ---
OB Subjective Progress Notes Subjective Doing well. Pain controlled with oral medications. Tolerating regular diet. Ambulating. Voiding. Normal lochia. No preeclampsia symptoms. OB Objective Physical Exam Vital Signs Date Time Temp Pulse Resp B/P (MAP) Pulse Ox O2 Delivery O2 Flow Rate FiO2 04/05/19 03:13 98.2 16 112/57 (75) Room Air 04/04/19 23:05 94 Intake and Output 04/05/19 07:00 Intake Total 820 ml Balance 820 ml Intake Oral 220 ml IV Total 600 ml General Appearance: Alert/Awake/No Acute Distress Eyes: Normal Extraocular Movement & Vison Cardiovascular: Normal Rhythm & Peripheral Pulses, Regular Rate and Rhythm Respiratory: No Respiratory Distress, Clear to Auscultation Abdomen: Soft, Non-Tender, Non-Distended, Fundus Firm Extremities: No Cyanosis,Clubbing or Edema Integumentary: Skin Intact without Lesions or Rash Psychological: Alert & Oriented X3, Appropriate Mood & Affect Result Diagram: 04/05/19 0613 Assessment and Plan Problems: (1) examination following vaginal delivery Assessment & Plan: PPD#1 s/p . Meeting milestones. Desires discharge to home today. Discussed routine expectations. Questions answered. Follow up in clinic in 2wks for check. She has longstanding anemia and will continue iron supplements at home. MICAELA LYON MD April 05, 2019 07:40
--- NOTE | 2019-04-05 07:41 | OB/GYN Discharge Summary ---
Discharge Summary Reason for Hosp/Final Diag: (1) examination following vaginal delivery Hospital Course & Plan: PPD#1 s/p . Meeting milestones. Desires discharge to home today. Discussed routine expectations. Questions answered. Follow up in clinic in 2wks for check. She has longstanding anemia and will continue iron supplements at home. Lates Vital Signs Vital Signs Date Time Temp Pulse Resp B/P (MAP) Pulse Ox O2 Delivery O2 Flow Rate FiO2 04/05/19 03:13 98.2 16 112/57 (75) Room Air 04/04/19 23:05 94 Weight (Pounds): 207 Result Diagram: 04/05/19612 Condition: Improved Discharge: Home, Self Long-Term Meds Active Scripts Hydrocodone Bit/Acetaminophen (HYDROCODON-ACETAMINOPHEN 5-325) 1 Each Tablet, 1 EACH PO Q4-6H PRN for pain, #15 TAB 0 Refills Prov:MICAELA LYON MD 04/04/19 Ferrous Sulfate (FERROUS SULFATE) 325 Mg Tablet.dr, 1 TAB PO BID for anemia for 30 Days, #60 TAB 3 Refills Prov:JESSIE EARL CNM 02/19/19 Docusate Sodium (COLACE) 100 Mg Capsule, 100 MG PO BID for constipation for 30 Days, #60 CAPSULE 1 Refill Prov:JESSIE EARL CNM 02/19/19 Reported Medications Vits W-Ca,Fe,Fa(<1MG) ( VITAMINS) 1 Each Tablet, 1 EACH PO DAILY, TAB 06/23/17 Follow up Referrals: 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
[2019-04-05] MEDS: FERROUS SULFATE 325 MG TAB PO SCH (08:31)
[2019-04-05] MEDS: DOCUSATE CALCIUM 240 MG CAP PO SCH (08:31)
--- NOTE | 2019-04-05 10:44 | Anesthesia Post Eval Note ---
Anesthesia Post Eval Note Vital Signs Date Time Temp Pulse Resp B/P (MAP) Pulse Ox O2 Delivery O2 Flow Rate FiO2 04/05/19 07:25 98.4 83 16 115/70 (85) 94 Room Air Pt able to participate in Eval: Yes Cardiovascular Status: Satisfactory Respiratory Status: Satisfactory Pain Managment: Satisfactory PO Nausea/Vomiting: Satisfactory Temperature Management: Satisfactory Mental Status: Satisfactory, Alert, Oriented X3 Post-Op Hydration Status: Satisfactory, Tolerating PO Well, Voiding w/o Difficulty Anesthesia Type: CSE Anesthesia Tolerance: Pt is sitting in bed. She reports feeling some localized numbness in her legs, late last night but, this has resolved at this point. Alcohol pad utilized to check legs bilaterally for residual block - none detected. She has ambulated with steady gait. Denies FONTANEZ. Stick site w/o redness swelling or drainage. MARIELENA JOHNS FACILITY SERVICE MANAGER April 05, 2019 10:44
[2019-04-05 13:00] VITALS: BP 112/57
[2019-04-06] MEDS ORDERED: MEASLES,MUMP,RUBELLA VAC 0.5ML SUBQ ONE (09:00)
== END 2019-04-05 15:10 | disposition home or self-care (01) | DRG 807 ==
LOC: OB 07:30
PROVIDERS: ADMIT Obstetrics & Gynecology; ATTEND Obstetrics & Gynecology
PROC: 10E0XZZ Delivery of Products of Conception, External Approach (ICD-10-PCS; principal; 2019-04-04)
PROC: 10907ZC Drainage of Amniotic Fluid, Therapeutic from Products of Conception, Via Natural or Artificial Opening (ICD-10-PCS; 2019-04-04)
DX: O99.02 Anemia complicating childbirth (principal); Z37.0 Single live birth; D50.9 Iron deficiency anemia, unspecified; O99.214 Obesity complicating childbirth; E66.9 Obesity, unspecified; Z3A.38 38 weeks gestation of pregnancy; Z23 Encounter for immunization
CPT/HCPCS: 36415; 85025; 85027; 86850; 86900; 86901; 90471; 90707; J2590; J3490; J7120